=== PATIENT | female | born 1975 | race Two or more races ===

== ENCOUNTER → 2025-01-24 | Outpatient (CLI) | payer BC, MEDICAID, SELFPAY ==
--- NOTE | 2025-01-24 14:30 | XR_ITS ---
Examination: Screening digital mammography, bilateral Computer aided detection 3-D breast Tomosynthesis, bilateral Date and time of exam: January 24, 2025 1440 hours Compared to mammograms dating to October 22, 2017 Indication: Screening Technique: Nonmagnified MLO, CC views of the breasts to been obtained, reconstructed from 3-D Tomosynthesis images. R2 computer aided detection program utilized for evaluation of suspicious masses and/or abnormal calcifications. 3-D Tomosynthesis images obtained. Findings: The breasts are heterogeneously dense, which may obscure small masses Retroareolar breast marker No interval suspicious masses Impression: BI-RADS category II: Benign Findings. Recommend 1 year follow-up mammogram. Given the history of breast biopsy 11:00 nodule right breast, recommend repeat right breast sonography to document stability of 11:00 nodule noted on the breast sonogram January 29, 2024
== END | disposition home or self-care (01) ==
LOC: CDIM 14:27
PROVIDERS: Referring Provider Nurse Practitioner Family; Visit Provider Nurse Practitioner Family
DX: Z12.31 Encounter for screening mammogram for malignant neoplasm of breast (principal); R92.323 Mammographic fibroglandular density, bilateral breasts; N63.11 Unspecified lump in the right breast, upper outer quadrant
CPT/HCPCS: 77063; 77067

== ENCOUNTER 2025-06-15 10:29 | Emergency (ER) | payer BC, MEDICAID, SELFPAY ==
[2025-06-15 10:31] VITALS: BMI 21.2
--- NOTE | 2025-06-15 10:49 | EKG_ITS ---
[facility] Test Date: 2025-06-15 Pat Name: SANFORD MCGOVERN Department: Room: - Gender: Female [employer]: : 1975 Requested By: Sameer Patterson (HEDIS REGISTERED NURSE RN) Order Number: [id number] Reading MD: Sameer Patterson (HEDIS REGISTERED NURSE RN) Measurements Intervals [place] Rate: 79 P: 65 NC: 192 QRS: 77 QRSD: 105 T: 63 QT: 338 QTc: 389 Interpretive Statements SINUS RHYTHM WITH SINUS ARRHYTHMIA INCOMPLETE RIGHT BUNDLE BRANCH BLOCK [90+ ms QRS DURATION, TERMINAL R IN V1/V2, 40+ ms S IN I/aVL/V4/V5/V6] No previous ECG available for comparison /[id number]/S0/[id number].pdf
[2025-06-15 10:52] VITALS: BP 121/80; PULSE 69; RESP 16; TEMP 36.8; O2SAT 100
--- NOTE | 2025-06-15 11:08 | XR_ITS ---
EXAMINATION: PA lateral chest 2 views TECHNIQUE: Upright PA lateral chest 2 views Date and time: June 15, 2025, 1115 hours INDICATIONS: Chest pressure difficulty breathing 1 week. FINDINGS: Normal heart size. Lungs are clear. Moderate osteopenia. IMPRESSION: No active disease
--- NOTE | 2025-06-15 11:09 | PD.EDRME ---
Rapid Medical Screening Exam RME Arrival date/time: 06/15/25 10:29 50-year-old female presents to the Emergency Department today for complaints of chest pain Chief Complaint: Chest Pain Time Seen by Provider: 06/15/25 10:33 Vital signs: Vital Signs Temperature 98.2 F 06/15/25 10:52 Pulse Rate 69 06/15/25 10:52 Respiratory Rate 16 06/15/25 10:52 Blood Pressure 121/80 06/15/25 10:52 Pulse Oximetry (%) 100 06/15/25 10:52 Oxygen Delivery Method Room Air 06/15/25 10:52 Vital signs reviewed by provider: Yes Exam: On exam well-appearing does not appear ill or toxic Clinical Impression: Lab work imaging x-ray obtained as well as EKG
[2025-06-15 11:44] LABS: Basophils # (Auto) 0.0 Thou/mm3 (0.0-0.2); Basophils % (Auto) 0 % (0-2.5); Eosinophils # (Auto) 0.1 Thou/mm3 (0.0-0.5); Eosinophils % (Auto) 1 % (0-10); Hematocrit 41.2 % (36.0-46.0); Hemoglobin 14.6 g/dL (12.0-16.0); Immature Granulocytes Auto 0.02 Thou/mm3 (0.00-0.00); Lymphocytes # (Auto) 2.3 Thou/mm3 (1.0-4.8); Lymphocytes % (Auto) 26 % (10-50); Mean Corpuscular HGB Conc 35.4 g/dl (31.0-37.0); Mean Corpuscular Hemoglobin 31.8 pg (25.0-35.0); Mean Corpuscular Volume 90 fL (80-100); Monocytes # (Auto) 0.6 Thou/mm3 (0.0-0.8); Monocytes % (Auto) 6 % (0-12); Neutrophils # (Auto) 5.8 Thou/mm3 (1.8-7.7); Neutrophils % (Auto) 66 % (37-80); Nucleated Red Blood Cell # 0.00 Thou/mm3 (0.00-0.00); Nucleated Red Blood Cell % 0 /100 WBC (0); Platelet Count 189 Thou/mm3 (140-440); RDW Standard Deviation 40.8 fL (36.4-46.3); Red Blood Count 4.59 Miln/mm3 (4.00-5.20); White Blood Count 8.8 Thou/mm3 (3.6-11.0)
[2025-06-15 12:04] LABS: Alanine Aminotransferase 18 U/L (10-49); Albumin, Serum 4.6 gm/dL (3.5-5.0); Albumin/Globulin Ratio 1.5 (1.2-2.2); Alkaline Phosphatase 74 U/L (46-116); Anion Gap 8 (7-16); Aspartate Amino Transferase 21 U/L (0-34); BUN/Creatinine Ratio 16 Ratio (12-20); Bilirubin,Total 1.9 mg/dL (0.3-1.2); Blood Urea Nitrogen 8 mg/dL (9-23); Calcium 9.7 mg/dL (8.3-10.6); Calcium (Corrected) 9.7 mg/dL (8.5-10.1); Carbon Dioxide 30.5 mMol/L (20.0-31.0); Chloride 104 mMol/L (98-107); Creatinine (Component) 0.5 mg/dL (0.6-1.3); Estimated Creatinine Clearance 110.1 mL/min (>60); Globulin 3.1 gm/dL (2.3-3.5); Glucose 84 mg/dL (74-106); Lipase 26 U/L (12-53); Osmolality,Calculated 280 (275-295); Potassium 3.4 mMol/L (3.4-5.1); Sodium 142 mMol/L (136-145); Total Protein 7.7 gm/dL (5.7-8.2); Troponin I < 0.002 ng/mL (0.0-0.045); eGFR > 60 See Note
[2025-06-15 12:21] LABS: HCG,Qualitative Serum Negative
--- NOTE | 2025-06-15 12:36 | EDNOTE_ITS ---
ED Chest Pain RME/HPI General Chief Complaint: Chest Pain Stated Complaint: CP/PRESSURE/SOB Time Seen by Provider: 06/15/25 10:33 Arrival date/time: 06/15/25 10:29 RME / HPI RME / HPI narrative: 06/15/25 10:29 50-year-old female presents to the Emergency Department today for complaints of chest pain DR. KATZ MAIN ED EVALUATION 50 year old male with history of hypothyroidism presents to the ED for evaluation of chest pain today. Patient reports the chest pain began intermittently one week ago, lasting approximately 3 minutes per episode. However, today?s episode is more severe and has occurred more frequently. Pain is described as a pressure-like sensation, rated as moderate. Accompanied by feeling she is not able to take a full breath and feeling generalized numbness during the episodes. Denies associated symptoms such as fevers, chills, cough, sore throat, abdominal pain, nausea, vomiting, or urinary symptoms. The patient has not had any recent trauma or significant changes in physical activity. He denies recent weight changes or palpitations. The chest pain is not clearly associated with exertion, and there are no known triggers. The patient reports being evaluated by a jewelry salesperson for an autoimmune liver condition, which led to a referral to a education program specialist. States that she recently had blood work done and was assessed by the education program specialist, who subsequently referred her to a cigar packer and shader for further evaluation of a heart murmur. Exam: On exam well-appearing does not appear ill or toxic Impression: Lab work imaging x-ray obtained as well as EKG Related Data Home Medications ?Medication ?Instructions ?Recorded ?Confirmed Levothyroxine * (SYNTHROID *) 75 mcg PO QDAY #0 tabs 0 09/11/15 Previous Rx's ?Medication ?Instructions ?Recorded ibuprofen 600 mg tablet 600 mg PO Q8HR #30 tabs 07/0 01/12 Allergies Allergy/AdvReac Type Severity Reaction Status Date / Time NKA Allergy Unknown Uncoded 06/15/25 10:34 Review of Systems Review of Systems Systems Reviewed: All systems reviewed, normal except as documented Past Medical History Social History SMOKING STATUS: Never smoker ED Exam Narrative Physical exam: Constitutional: Awake, alert, nontoxic, no acute distress HEENT: Normocephalic, atraumatic, extraocular movements intact. Neck: Supple CV: Regular rate and rhythm, systolic murmur, no rubs/gallops. Lungs: Clear to auscultation BL, no respiratory distress. Abd: Soft, NT, ND, no HSM noted to palpation Extremities: No deformities, no edema noted Neuro: AAOx3, CN 2-12 GIBL, no acute neuro deficit noted. Skin: Warm, dry, intact Course Course Course Narrative: 1410h: Patient's repeat troponin is negative. Okay for discharge home. Vitally stable. Advised on outpatient follow-up with PCP for further outpatient workup of chest pain episodes to consider outpatient stress test. Quality Measures none Orders Category Date Time Status EKG (ED ONLY) *Do not use* NOW Care 06/15/25 10:49 Completed EKG (ED Only) Stat Exams 06/15/25 10:49 Draft XR chest 2V Stat Exams 06/15/25 11:08 Completed CBC Stat Lab 06/15/25 11:30 Completed Comprehensive Metabolic Panel Stat Lab 06/15/25 11:30 Completed HCG,Qualitative Serum Stat Lab 06/15/25 11:30 Completed Lipase Stat Lab 06/15/25 11:30 Completed Troponin I Stat Lab 06/15/25 11:30 Completed Troponin I Stat Lab 06/15/25 13:09 Completed Vital Signs Vital signs: Vital Signs Temperature 98.2 F 06/15/25 10:52 Pulse Rate 69 06/15/25 10:52 Respiratory Rate 16 06/15/25 10:52 Blood Pressure 121/80 06/15/25 10:52 Pulse Oximetry (%) 100 06/15/25 10:52 Oxygen Delivery Method Room Air 06/15/25 10:52 Pulse ox is 100% on room air which is adequate. Chest Pain MDM Narrative MDM Narrative:: 50y/o F here for eval chest pain episodes that she has been having at home. Workup in ED is negative with troponin negative x 2, chest x-ray unremarkable, remainder of labs unremarkable. Have advised on outpatient follow-up with PCP for discussion further outpatient workup including stress test. Patient notes that she also does have a referral in for cardiology follow-up. Encouraged to ask about when her appointment is. She is otherwise stable for discharge home with return precautions advised. Minerva Sandoval am scribing for and in the presence of Dr. Katz. Patient data External records reviewed:: [facility] previous records Clinical information provided by:: patient Social determinants that could affect healthcare access:: none Patient has the following chronic illnesses:: hypothyroidism How is presenting disease/condition affected by chronic disease/condition?: uneffected by Evaluation data The following diagnostics were reviewed and interpreted by me:: lab results, radiology exam(s) and EKG tracing(s) (EKG @ 10:55 AM, interpreted by me, sinus rhythm with sinus arrhytmia, rate 79, incomplete right bundle branch block, no STEMI. ) Lab and/or radiology exams considered but not ordered:: None Interpretation Summary: Ordering Physician: Leonardo JOHNSON)Sameer NP Date of Service: 06/15/25 Procedure(s): XR chest 2V Accession Number(s): [id number] cc: Leonardo JOHNSON),Sameer BETTENCOURT; Randal Doran MD; NO PRIMARY/FAMILY,PHYSICIAN~ EXAMINATION: PA lateral chest 2 views TECHNIQUE: Upright PA lateral chest 2 views Date and time: June 15, 2025, 1115 hours INDICATIONS: Chest pressure difficulty breathing 1 week. FINDINGS: Normal heart size. Lungs are clear. Moderate osteopenia. IMPRESSION: No active disease Dictated By: Randal Doran MD Signed By: <Electronically signed by Randal Doran MD in OV> 06/15/25 1149 Medications / Prescriptions Medications or Prescriptions considered but not ordered:: None Medication administrations:: None Consultations Consultation(s) initiated? (list below): No Diagnosis Chest Pain Differential Diagnosis: stable angina, unstable angina pectoris, atypical chest pain, st elevation myocardial infarction, costochondritis, chest pain, biliary colic and other (anxiety ) Most likely diagnosis given after review of the tests above:: Nonspecific chest pain Admission Indicated Admission indicated?: not indicated Admission Request Was there a request for admission?: No Disposition Plan Disposition Plan: Discharge Discharge Attestation Discharge Attestation: The patient and all family members were given an opportunity to ask questions and understood the discharge instructions. Discharge instructions specifically effects, indications for sooner follow up or return to the emergency department, and the expected course of current diagnosis. Patient condition: Stable Discharge Plan Plan Patient Disposition: HOME (Self Care) Patient condition on transfer: Stable Prescriptions/Referrals Prescriptions/Med Rec: No Action Levothyroxine * (SYNTHROID *) 75 MCG tablet 75 mcg PO QDAY Qty: 0 ibuprofen 600 MG tablet 600 mg PO Q8HR Qty: 30 0RF Referrals: No Primary/Family,Physician [Primary Care Provider] - In 1 week Problem List Clinical Impression: Nonspecific chest pain Patient/Caregiver Discharge Instructions Education Materials: ED Chest Pain, Uncertain Cause Additional Instructions: Algunos principios generales de joseph que pueden ayudarte son los principios de ADELANTE: Agua: (beber suficiente agua fresca para mantenerse hidratado, priorizando el agua en lugar de refrescos, caf?, t?, jugos, etc.). [place] (descansar adecuadamente por la noche, acostarse unas horas antes de la medianoche y evitar las pantallas, la televisi?n y la m?orestes hodan dilan antes de acostarse, as? cristobal las comidas pesadas dilan antes de acostarse). Ejercicio: (ejercicio/caminatas diarias seg?n la tolerancia). Francie solar: (exponer la piel al aide jorge 15-20 minutos aproximadamente, temprano por la ma?ghislaine y al atardecer, para obtener los beneficios de la vitamina D). Aire (ejercicios de respiraci?n profunda temprano por la ma?ghislaine al aire baron). Nutricion: (consumir sarwat dieta a base de plantas, evitar las apolonia en general y los alimentos altamente procesados). Templanza (evitar el alcohol, las drogas il?citas, las bebidas con cafe?na, fumar, etc.). [place] (dedicar tiempo diariamente al estudio b?blico y la oraci?n: la contemplaci?n tiene beneficios para la joseph). Recursos adicionales que pueden ser ?tiles: [email or web address], consulte la secci?n de recursos y seminarios. Print Language: Nepali Stand Alone Forms: Fabiana Award Info., Patient Portal Info Letter
[2025-06-15 13:39] LABS: Troponin I < 0.002 ng/mL (0.0-0.045)
== END 2025-06-15 15:13 | disposition home or self-care (01) ==
PROVIDERS: Nurse Practitioner Primary Care; Emergency Provider Family Medicine
DX: R07.89 Other chest pain (principal); I49.8 Other specified cardiac arrhythmias; I45.10 Unspecified right bundle-branch block
CPT/HCPCS: 36415; 71046; 80053; 83690; 84484; 84703; 85025; 93005; 99283